=== PATIENT | female | born 1955 | race Caucasian/White ===

== ENCOUNTER 2016-10-13 13:38 | Emergency (ER) | payer OTHER ==
[~2016-10-13] VITALS: Ht 165.1 cm; Wt 70.3 kg
[~2016-10-13 13:38] MED LIST: ASPIR 8181 M1 PO; DILAUDID2 MG PO; Ecotrin PO; FISH OIL 1,0001 EAC7 PO; Hydrodiuril,Oretic,E PO; IMDUR30 MG PO; LEVAQUIN; LISINOPRIL10 MG PO; LISINOPRIL5 MG PO; METOPROLOL SUCC50 MG PO; NORVASC5 MG PO; OMEGA 3 1,0001 EACH PO; PRILOSEC20 MG PO; Toprol XL PO; VOLTAREN 1% GE100 GM TP; XANAX0.25 MG PO
[2016-10-13 14:57] LABS: ADD MIUA? YES; BILIRUBIN NEGATIVE; BLOOD LARGE; COLOR STRAW ((YELLOW)); GLUCOSE (STRIP) NEGATIVE; KETONES NEGATIVE; LEUKOCYTES NEGATIVE; NITRITE NEGATIVE; PROTEIN (STRIP) NEGATIVE; SPECIFIC GRAVITY 1.008 (1.000-1.030); UROBILINOGEN 0.2 MG/DL (0.2-1.0)
[2016-10-13 14:57] LABS: HEMATOCRIT 39.9 % (36.0-46.0); MCH 27.6 PG (29.0-34.0); MCHC 32.8 G/DL (30.0-36.0); MCV 84.2 FL (83-99); MEAN PLAT.VOLUME 11.6 uM^3 (9.5-12.4); PLATELET COUNT 243 K/uL (156-360); RBC DIS.WIDTH-CV 13.2 % (11.8-14.6); RBC DIS.WIDTH-SD 40.4 % (39-53); RED BLOOD COUNT 4.74 M/uL (3.80-5.20); WHITE BLOOD COUNT 6.1 K/uL (4.1-10.2)
[2016-10-13 15:09] LABS: CHLORIDE 106 mEq/L (99-109); POTASSIUM 5.1 mEq/L (3.7-5.4); SODIUM 139 mEq/L (136-147)
[2016-10-13 15:11] LABS: GLUCOSE 72 mg/dL (70-99)
[2016-10-13 15:12] LABS: BACTERIA NONE SEEN /HPF; EPITHELIAL CELLS RARE /HPF; MUCUS TRACE /LPF; WHITE BLOOD CELLS 0-5 /HPF (0-5)
[2016-10-13 15:13] LABS: ANION GAP 10 MEQ/L (2-14)
[2016-10-13 15:14] LABS: TOTAL BILIRUBIN 1.4 mg/dL (0.0-1.0)
[2016-10-13 15:15] LABS: ALKALINE PHOSPHATASE 49 IU/L (3-129); GFR ESTIMATE (CALCULATED) > 59 mL/min/
[2016-10-13 15:16] LABS: UREA NITROGEN (BUN) 16 mg/dL (9-23)
[2016-10-13 15:19] LABS: LIPASE 67 U/L (1.0-51.0)
[2016-10-13] MEDS ORDERED: ZOFRAN ODT4 MG PO (17:09)
[2016-10-13] MEDS ORDERED: CARAFATE1 GM PO (17:09)
[2016-10-13 18:05] VITALS: BP 134/60
== END 2016-10-13 18:08 | disposition home or self-care (01) ==
LOC: EME 13:38
PROVIDERS: Nurse Practitioner Family
DX: R11.2 Nausea with vomiting, unspecified (principal); R10.11 Right upper quadrant pain; R10.13 Epigastric pain; K29.70 Gastritis, unspecified, without bleeding; R19.7 Diarrhea, unspecified; R42 Dizziness and giddiness; R53.1 Weakness; R73.9 Hyperglycemia, unspecified; K20.9 Esophagitis, unspecified; I10 Essential (primary) hypertension; Z90.49 Acquired absence of other specified parts of digestive tract; Z79.82 Long term (current) use of aspirin
CPT/HCPCS: 74177; 80053; 81003; 83605; 83690; 85027; 99281; 99285; J1885; J2405; J7040

== ENCOUNTER → 2016-11-16 | Outpatient (CLI) | payer OTHER ==
[~2016-11-16] MED LIST changes: +CARAFATE1 GM PO; +ZOFRAN ODT4 MG PO
== END | disposition home or self-care (01) ==
LOC: NUC 06:40
DX: R11.0 Nausea (principal); R11.10 Vomiting, unspecified
CPT/HCPCS: 78264; A9541

== ENCOUNTER 2016-11-27 18:23 | Inpatient (IN) | payer OTHER ==
[~2016-11-27] VITALS: Ht 165.1 cm; Wt 69.8 kg
[2016-11-27 19:12] LABS: HEMATOCRIT 42.4 % (36.0-46.0); MCH 27.3 PG (29.0-34.0); MCHC 32.8 G/DL (30.0-36.0); MCV 83.3 FL (83-99); MEAN PLAT.VOLUME 10.7 uM^3 (9.5-12.4); PLATELET COUNT 264 K/uL (156-360); RBC DIS.WIDTH-CV 12.9 % (11.8-14.6); RBC DIS.WIDTH-SD 39.1 % (39-53); RED BLOOD COUNT 5.09 M/uL (3.80-5.20); WHITE BLOOD COUNT 8.1 K/uL (4.1-10.2)
[2016-11-27 19:26] LABS: CHLORIDE 106 mEq/L (99-109); SODIUM 140 mEq/L (136-147)
[2016-11-27 19:28] LABS: GLUCOSE 106 mg/dL (70-99)
[2016-11-27 19:29] LABS: ANION GAP 9 MEQ/L (2-14)
[2016-11-27 19:32] LABS: GFR ESTIMATE (CALCULATED) 54 mL/min/
[2016-11-27 19:33] LABS: UREA NITROGEN (BUN) 24 mg/dL (9-23)
[2016-11-27 19:55] LABS: LIPASE 71 U/L (1.0-51.0)
[2016-11-27] MEDS ORDERED: ZOFRAN ODT4 MG PO (21:25)
[2016-11-27] MEDS ORDERED: METOPROLOL SUCC50 MG PO (21:26)
[2016-11-27] MEDS ORDERED: DEXILANT60 MG PO (21:26)
[2016-11-27] MEDS ORDERED: DICYCLOMINE HCL10 MG PO (21:26)
[2016-11-27] MEDS ORDERED: CRESTOR5 MG PO (21:27)
[2016-11-27] MEDS ORDERED: IRBESARTAN300 MG PO (21:27)
[2016-11-27] MEDS ORDERED: METOCLOPRAMIDE10 MG PO (21:27)
[2016-11-27] MEDS ORDERED: METFORMIN HCL500 MG PO (21:27)
[2016-11-27 23:05] VITALS: BP 158/72
[2016-11-28 07:40] VITALS: BP 120/69
[2016-11-28 18:39] LABS: CHLORIDE 110 mEq/L (99-109); POTASSIUM 4.2 mEq/L (3.7-5.4); SODIUM 141 mEq/L (136-147)
[2016-11-28 18:41] LABS: GLUCOSE 140 mg/dL (70-99)
[2016-11-28 18:42] LABS: ANION GAP 12 MEQ/L (2-14)
[2016-11-28 18:45] LABS: GFR ESTIMATE (CALCULATED) 54 mL/min/; UREA NITROGEN (BUN) 17 mg/dL (9-23)
[2016-11-28 18:58] VITALS: BP 150/71
[2016-11-28 22:39] VITALS: BP 108/57
[2016-11-28 23:01] LABS: POINT-OF-CARE METER ID UU13113725; POINT-OF-CARE USER ID AHSUCEG
[2016-11-29 03:24] VITALS: BP 97/52
[2016-11-29 06:59] LABS: Estimated Average Glucose 134 mg/dL (70-123); HEMOGLOBIN A1c (GLYCOHEMOGLOB) 6.3 % HGB (Below 5.7)
[2016-11-29 07:10] VITALS: BP 109/60
[2016-11-29 07:36] LABS: POINT-OF-CARE METER ID UU13113725
[2016-11-29 11:30] LABS: POINT-OF-CARE METER ID UU13113725
[2016-11-29 15:19] VITALS: BP 134/67
[2016-11-29 18:54] VITALS: BP 120/54
[2016-11-29 21:00] LABS: POINT-OF-CARE METER ID UU13113725
[2016-11-29 23:18] VITALS: BP 100/51
[2016-11-30] VITALS (8 sets, daily range): BP systolic 109–133; BP diastolic 59–66
[2016-11-30 07:59] LABS: PROTHROMBIN TIME 10.2 (9.2-11.2)
[2016-11-30 08:14] LABS: ANION GAP 11 MEQ/L (2-14); CHLORIDE 104 MEQ/L (99-109); GFR ESTIMATE (CALCULATED) > 59 mL/min/; GLUCOSE 141 mg/dL (70-99); POTASSIUM 4.2 MEQ/L (3.7-5.4); SAMPLE HEMOLYSIS CHECK 0; SAMPLE ICTERIC CHECK 0; SAMPLE LIPEMIA CHECK 0; SODIUM 140 MEQ/L (136-147); UREA NITROGEN (BUN) 21 mg/dL (9-23)
[2016-11-30 17:00] LABS: APPEARANCE CLEAR/COLORLESS; RED CELL COUNT 0 /MM^3 (0-1); RED CELL DILUTION 1; WBC DILUTION 1; WHITE CELL COUNT 0 /MM^3 (0-5); WHITE CELL RAW COUNT 0
[2016-11-30 17:00] LABS: APPEARANCE CLEAR/COLORLESS; RED CELL COUNT 0 /MM^3 (0-1); RED CELL DILUTION 1; WBC DILUTION 1; WHITE CELL COUNT 0 /MM^3 (0-5); WHITE CELL RAW COUNT 0
[2016-11-30 17:01] LABS: CSF EOSINOPHILS ND % (0-25); MONONUCLEAR WBC'S ND % (50-90); POLYNUCLEAR WBC'S ND % (0-3)
[2016-11-30 17:02] LABS: CSF EOSINOPHILS ND % (0-25); MONONUCLEAR WBC'S ND % (50-90); POLYNUCLEAR WBC'S ND % (0-3)
[2016-11-30 19:44] LABS: BODY FLUIDS MISC. ND
[2016-12-01] VITALS: BP 130/61
[2016-12-01 03:10] VITALS: BP 129/63
[2016-12-01 05:55] LABS: POINT-OF-CARE METER ID UU13113725
[2016-12-01 07:15] VITALS: BP 165/67
[2016-12-01 10:48] VITALS: BP 130/61
[2016-12-01] MEDS ORDERED: DEXAMETHASONE4 MG PO (12:26)
[2016-12-01] MEDS ORDERED: ANTIVERT12.5 MG PO (12:26)
[2016-12-02 00:46] LABS: HSV CSF Spec Source CSF (())
== END 2016-12-01 14:19 | disposition home or self-care (01) | DRG 149 ==
LOC: EME 18:23 → EXP 18:23 → 5EAST 22:05 → EDOF 22:05 → 5EAST 22:05
PROVIDERS: Hospitalist; Internal Medicine; Psychiatry & Neurology Clinical Neurophysiology; Radiology Diagnostic Radiology
DX: R42 Dizziness and giddiness (principal); G93.9 Disorder of brain, unspecified; I10 Essential (primary) hypertension; E11.9 Type 2 diabetes mellitus without complications; E78.5 Hyperlipidemia, unspecified; K21.0 Gastro-esophageal reflux disease with esophagitis; N20.0 Calculus of kidney; K44.9 Diaphragmatic hernia without obstruction or gangrene; N28.1 Cyst of kidney, acquired; E06.3 Autoimmune thyroiditis; G47.30 Sleep apnea, unspecified; M43.06 Spondylolysis, lumbar region
CPT/HCPCS: 62270; 70450; 70553; 71020; 71260; 74177; 77003; 80048; 82565; 82945; 82948; 83036; 83690; 84157; 84520; 85027; 85610; 86617 90; 86618 90; 87070; 87102; 87116; 87205; 87206; 87210; 87529 90; 88108; 89051; 93005; 99281; 99285; G8987 GO CH; G8988 GO CH; G8989 GO CH; J0690; J1650; J1815; J2405; J3480; J7030; J8540

== ENCOUNTER 2017-01-07 15:54 | Inpatient (IN) | payer OTHER ==
[~2017-01-07] VITALS: Ht 165.1 cm; Wt 63.4 kg
[~2017-01-07 15:54] MED LIST changes: +ANTIVERT12.5 MG PO; +CRESTOR5 MG PO; +DEXAMETHASONE4 MG PO; +DEXILANT60 MG PO; +DICYCLOMINE HCL10 MG PO; +IRBESARTAN300 MG PO; +METFORMIN HCL500 MG PO; +METOCLOPRAMIDE10 MG PO
[2017-01-07 16:32] LABS: HEMATOCRIT 39.5 % (36.0-46.0); MCHC 33.7 G/DL (30.0-36.0); MCV 83.2 FL (83-99); MEAN PLAT.VOLUME 9.9 uM^3 (9.5-12.4); PLATELET COUNT 127 K/uL (156-360); RBC DIS.WIDTH-CV 14.6 % (11.8-14.6); RBC DIS.WIDTH-SD 42.9 % (39-53); RED BLOOD COUNT 4.75 M/uL (3.80-5.20); WHITE BLOOD COUNT 6.6 K/uL (4.1-10.2)
[2017-01-07 16:41] LABS: CHLORIDE 101 mEq/L (99-109); POTASSIUM 4.5 mEq/L (3.7-5.4); SODIUM 135 mEq/L (136-147)
[2017-01-07 16:43] LABS: GLUCOSE 240 mg/dL (70-99)
[2017-01-07 16:44] LABS: ANION GAP 11 MEQ/L (2-14); PROTHROMBIN TIME 9.8 (9.2-11.2)
[2017-01-07 16:47] LABS: GFR ESTIMATE (CALCULATED) > 59 mL/min/
[2017-01-07 16:48] LABS: UREA NITROGEN (BUN) 20 mg/dL (9-23)
[2017-01-07] MEDS ORDERED: DECADRON4 MG PO ×2 (19:16)
[2017-01-07] MEDS ORDERED: POLYETHYLENE G255 GM PO (19:20)
[2017-01-07] MEDS ORDERED: TEMOZOLOMIDE140 MG PO (19:22)
[2017-01-07] MEDS ORDERED: DULCOLAX10 MG PR (19:24)
[2017-01-07] MEDS ORDERED: FLUCONAZOLE100 MG PO (19:24)
[2017-01-07] MEDS ORDERED: PROTONIX40 MG PO (19:25)
[2017-01-07] MEDS ORDERED: KEPPRA1000 MG PO (19:25)
[2017-01-07] MEDS ORDERED: COLACE100 MG PO (19:26)
[2017-01-07] MEDS ORDERED: BACTRIM,SEPT1 TABLET PO (19:26)
[2017-01-07 21:06] LABS: HEMATOCRIT 37.2 % (36.0-46.0); MCH 28.3 PG (29.0-34.0); MCHC 34.7 G/DL (30.0-36.0); MCV 81.6 FL (83-99); MEAN PLAT.VOLUME 9.8 uM^3 (9.5-12.4); PLATELET COUNT 110 K/uL (156-360); RBC DIS.WIDTH-CV 14.8 % (11.8-14.6); RBC DIS.WIDTH-SD 42.8 % (39-53); RED BLOOD COUNT 4.56 M/uL (3.80-5.20); WHITE BLOOD COUNT 6.9 K/uL (4.1-10.2)
[2017-01-07 21:16] LABS: CHLORIDE 103 mEq/L (99-109); POTASSIUM 4.1 mEq/L (3.7-5.4); SODIUM 136 mEq/L (136-147)
[2017-01-07 21:18] LABS: INTER. NORMALIZED RATIO 1.1; PROTHROMBIN TIME 10.9 (9.2-11.2)
[2017-01-07 21:19] LABS: GLUCOSE 263 mg/dL (70-99)
[2017-01-07 21:20] LABS: ANION GAP 13 MEQ/L (2-14); PTT 118.2 (25-32)
[2017-01-07 21:22] LABS: ALKALINE PHOSPHATASE 54 IU/L (3-129); GFR ESTIMATE (CALCULATED) > 59 mL/min/
[2017-01-07 21:23] LABS: UREA NITROGEN (BUN) 18 mg/dL (9-23)
[2017-01-07 23:37] VITALS: BP 131/69
[2017-01-08 04:00] VITALS: BP 143/64
[2017-01-08 07:33] VITALS: BP 124/61
[2017-01-08 15:44] VITALS: BP 120/75
[2017-01-08 15:51] VITALS: BP 110/78
[2017-01-08 20:11] VITALS: BP 96/57
[2017-01-08 21:00] VITALS: BP 90/50
[2017-01-08 21:23] LABS: POINT-OF-CARE USER ID STWHLR41
[2017-01-09 00:06] VITALS: BP 105/65
[2017-01-09 04:12] VITALS: BP 131/69
[2017-01-09 07:35] LABS: INTER. NORMALIZED RATIO 1.1; PROTHROMBIN TIME 10.7 (9.2-11.2); PTT 31.5 (25-32)
[2017-01-09 08:04] VITALS: BP 112/60
[2017-01-09] MEDS ORDERED: LOVENOX60 MG/0.6 SC (08:38)
[2017-01-09 11:19] VITALS: BP 102/60
== END 2017-01-09 13:04 | disposition home or self-care (01) | DRG 300 ==
LOC: EME 15:54 → EDOF 19:47 → 5EAST 22:06
PROVIDERS: Internal Medicine; Physician Assistant
DX: I82.431 Acute embolism and thrombosis of right popliteal vein (principal); C71.9 Malignant neoplasm of brain, unspecified; B37.9 Candidiasis, unspecified; E06.3 Autoimmune thyroiditis; E11.9 Type 2 diabetes mellitus without complications; I10 Essential (primary) hypertension; E78.2 Mixed hyperlipidemia; G40.909 Epilepsy, unspecified, not intractable, without status epilepticus; G47.33 Obstructive sleep apnea (adult) (pediatric); I25.10 Atherosclerotic heart disease of native coronary artery without angina pectoris; Z79.01 Long term (current) use of anticoagulants; Z79.84 Long term (current) use of oral hypoglycemic drugs; Z79.899 Other long term (current) drug therapy; Z82.49 Family history of ischemic heart disease and other diseases of the circulatory system; Z83.3 Family history of diabetes mellitus; Z87.442 Personal history of urinary calculi; Z92.3 Personal history of irradiation
CPT/HCPCS: 70450; 80048; 80053; 82948; 85027; 85610; 85730; 99281; 99284; J1650; J8540

== ENCOUNTER 2017-02-21 14:37 | Inpatient (IN) | payer OTHER ==
[~2017-02-21] VITALS: Ht 165.1 cm; Wt 56.8 kg
[~2017-02-21 14:37] MED LIST changes: +BACTRIM,SEPT1 TABLET PO; +COLACE100 MG PO; +DECADRON4 MG PO; +DULCOLAX10 MG PR; +FLUCONAZOLE100 MG PO; +KEPPRA1000 MG PO; +LOVENOX60 MG/0.6 SC; +POLYETHYLENE G255 GM PO; +PROTONIX40 MG PO; +TEMOZOLOMIDE140 MG PO
[2017-02-21] MEDS ORDERED: DRONABINOL2.5 MG PO (16:46)
[2017-02-21] MEDS ORDERED: METFORMIN HCL500 MG PO (16:47)
[2017-02-21] MEDS ORDERED: PROTONIX40 MG PO (16:48)
[2017-02-21] MEDS ORDERED: ROXICODONE5 MG PO (16:48)
[2017-02-21] MEDS ORDERED: BACTRIM,SEPT1 TABLE1 PO (16:48)
[2017-02-21] MEDS ORDERED: KEPPRA500 MG PO ×2 (16:48→20:34)
[2017-02-21] MEDS ORDERED: ONDANSETRON HCL8 MG PO (16:49)
[2017-02-21] MEDS ORDERED: DIFLUCAN100 MG PO (16:49)
[2017-02-21] MEDS ORDERED: LOVENOX60 MG/0.6 SC (16:50)
[2017-02-21] MEDS ORDERED: DECADRON2 MG PO (16:50)
[2017-02-21 17:56] LABS: HEMATOCRIT 23.1 % (36.0-46.0); MCH 30.8 PG (29.0-34.0); MCHC 33.3 G/DL (30.0-36.0); MCV 92.4 FL (83-99); MEAN PLAT.VOLUME 9.7 uM^3 (9.5-12.4); PLATELET COUNT 187 K/uL (156-360); RBC DIS.WIDTH-CV 20.5 % (11.8-14.6); RBC DIS.WIDTH-SD 66.4 % (39-53); WHITE BLOOD COUNT 6.9 K/uL (4.1-10.2)
[2017-02-21 17:58] LABS: EOSINOPHIL (%) 0 % (0-5); IMMATURE GRANULOCYTE COUNT 0.4 K/uL; INSTRUMENT ABS NEUTROPHIL CT 4.8 K/uL; LYMPHOCYTE COUNT 1.4 K/uL (1.0-2.8); MONOCYTE (%) 5.6 % (3-12); MONOCYTE COUNT 0.4 K/uL (0-0.8); NEUTROPHIL (%) 68.5 % (45-76); NEUTROPHIL COUNT 4.8 K/uL (1.8-6.4)
[2017-02-21 21:37] VITALS: BP 130/76
[2017-02-21 22:43] VITALS: BP 147/68
[2017-02-21 22:56] VITALS: BP 135/62
[2017-02-21 23:56] VITALS: BP 146/68
[2017-02-22] VITALS (15 sets, daily range): BP systolic 115–158; BP diastolic 59–77
[2017-02-22 08:51] LABS: HEMATOCRIT 32.9 % (36.0-46.0); MCH 31.1 PG (29.0-34.0); MCV 91.4 FL (83-99); MEAN PLAT.VOLUME 9.4 uM^3 (9.5-12.4); NRBC (%) 1.4 /100 WBC (0-0); PLATELET COUNT 137 K/uL (156-360); RBC DIS.WIDTH-CV 17.9 % (11.8-14.6); RBC DIS.WIDTH-SD 57.5 % (39-53); WHITE BLOOD COUNT 4.9 K/uL (4.1-10.2)
[2017-02-22 09:29] LABS: ANION GAP 8 MEQ/L (2-14); CHLORIDE 106 MEQ/L (99-109); GFR ESTIMATE (CALCULATED) > 59 mL/min/; GLUCOSE 122 mg/dL (70-99); POTASSIUM 3.4 MEQ/L (3.7-5.4); SAMPLE HEMOLYSIS CHECK 0; SAMPLE ICTERIC CHECK 0; SAMPLE LIPEMIA CHECK 0; SODIUM 142 MEQ/L (136-147); UREA NITROGEN (BUN) 8 mg/dL (9-23)
[2017-02-23 07:10] VITALS: BP 137/69
[2017-02-23 12:28] VITALS: BP 129/67
[2017-02-23] MEDS ORDERED: ADULT FOLDING1 EACH MC (14:41)
[2017-02-23] MEDS ORDERED: PERCOCET 5/31 TABLET PO (14:42)
[2017-02-23] MEDS ORDERED: MORPHINE SULFAT15 M1 PO (14:42)
[2017-02-23] MEDS ORDERED: CHLORASEPTIC MA30 ML MM (14:50)
== END 2017-02-23 15:58 | disposition home or self-care (01) | DRG 812 ==
LOC: EME 14:37 → EDOF 20:48 → 5EAST 20:48 → ENRESERV 20:50 → 5EAST 22:41
PROVIDERS: Emergency Medicine; Hospitalist
PROC: 30233N1 Transfusion of Nonautologous Red Blood Cells into Peripheral Vein, Percutaneous Approach (ICD-10-PCS; principal; 2017-02-21)
DX: D62 Acute posthemorrhagic anemia (principal); M79.81 Nontraumatic hematoma of soft tissue; T45.515A Adverse effect of anticoagulants, initial encounter; I82.4Z1 Acute embolism and thrombosis of unspecified deep veins of right distal lower extremity; C71.9 Malignant neoplasm of brain, unspecified; I10 Essential (primary) hypertension; I25.10 Atherosclerotic heart disease of native coronary artery without angina pectoris; E06.3 Autoimmune thyroiditis; E11.9 Type 2 diabetes mellitus without complications; E78.5 Hyperlipidemia, unspecified; G47.33 Obstructive sleep apnea (adult) (pediatric); K58.9 Irritable bowel syndrome, unspecified; Z51.5 Encounter for palliative care; Z66 Do not resuscitate; Z79.84 Long term (current) use of oral hypoglycemic drugs; Z86.73 Personal history of transient ischemic attack (TIA), and cerebral infarction without residual deficits; Z87.442 Personal history of urinary calculi; Z92.21 Personal history of antineoplastic chemotherapy; Z92.3 Personal history of irradiation
CPT/HCPCS: 80048; 85025; 85027; 86900; 86901; 86920; 93971; 99281; 99285; J7030; J7040; J8540; P9016; Q0167; S0028

== ENCOUNTER → 2017-03-29 | Outpatient (CLI) | payer OTHER ==
[~2017-03-29] MED LIST changes: +ADULT FOLDING1 EACH MC; +BACTRIM,SEPT1 TABLE1 PO; +CHLORASEPTIC MA30 ML MM; +DECADRON2 MG PO; +DIFLUCAN100 MG PO; +DRONABINOL2.5 MG PO; +KEPPRA500 MG PO; +MORPHINE SULFAT15 M1 PO; +ONDANSETRON HCL8 MG PO; +PERCOCET 5/31 TABLET PO; +ROXICODONE5 MG PO
== END | disposition home or self-care (01) ==
DX: R13.11 Dysphagia, oral phase (principal); R13.13 Dysphagia, pharyngeal phase; C71.9 Malignant neoplasm of brain, unspecified
CPT/HCPCS: 92611 GN